=== PATIENT | female | born 1975 | race Asian ===

== ENCOUNTER 2016-12-17 16:30 | Emergency (ER) | payer BC ==
[~2016-12-17] VITALS: Ht 160 cm; Wt 50.0 kg
[2016-12-17 16:31] VITALS: TEMP 98.2
[2016-12-17 17:09] LABS: BASO % 0.3 % (0.0-2.0); EOS % 0.1 % (0-4.0); GRAN % 89.9 % (42.2-75.2); HEMATOCRIT 39.9 % (37.0-47.0); HEMOGLOBIN 13.8 g/dl (12.5-16.0); LYMPH # 0.9 (1.2-3.4); LYMPH % 6.6 % (20.0-51.0); MEAN CELL VOLUME 91 fl (80.0-100.0); MEAN CORPUSCULAR HEMOGLOBIN 31 pg (27.0-31.0); MEAN CORPUSCULAR HGB CONC 35 g/dl (33.0-37.0); MEAN PLATELET VOLUME 9.4 fl (7.4-10.4); MONO # 0.4 (0.1-0.6); MONO % 2.6 % (1.7-9.3); PLATELET COUNT 269 K/mm3 (130-400); RED BLOOD COUNT 4.39 M/mm3 (4.10-5.30); REDCELL DISTRIBUTION WIDTH-CV 11.9 % (11.5-14.5); WHITE BLOOD COUNT 13.4 K/mm3 (4.8-10.8)
[2016-12-17 17:20] LABS: ADJUSTED CALCIUM 9.2 mg/dL (8.4-10.2); ALANINE AMINOTRANSFERASE 28 U/L (9-52); ALBUMIN 4.5 gm/dL (3.5-5.0); ALKALINE PHOSPHATASE 42 U/L (50-136); ANION GAP 12 mmol/L (7-16); BLOOD UREA NITROGEN 11 mg/dL (7-17); CALCIUM 9.6 mg/dL (8.4-10.2); CARBON DIOXIDE 26 mmol/L (22-30); CHLORIDE 99 mmol/L (98-107); GLUCOSE 178 mg/dL (74-106); POTASSIUM 3.8 mmol/L (3.4-5.0); SODIUM 137 mmol/L (137-145); TOTAL PROTEIN 8.1 gm/dL (6.4-8.2)
[2016-12-17 17:21] LABS: C-REACTIVE PROTEIN < 0.5 mg/dL (0.0-0.9)
[2016-12-17] MEDS ORDERED: ZOFRAN 4MG T4 MG/TAB PO (18:01)
[2016-12-17] MEDS ORDERED: ATIVAN 0.50.5 MG/TAB PO (18:01)
[2016-12-17 18:11] VITALS: BP 101/71; PULSE 64
== END 2016-12-17 18:12 | disposition home or self-care (01) ==
LOC: COL.ER 16:30
PROVIDERS: Emergency Medicine
DX: R42 Dizziness and giddiness (principal); R53.1 Weakness
CPT/HCPCS: J2060; J2405; J7030